=== PATIENT | male | born 1980 | race Caucasian/White ===

== ENCOUNTER 2019-05-09 20:27 | Emergency (ER) | payer SELFPAY ==
[2019-05-09] MEDS ORDERED: Ketorolac Tromethamine 30 MG/ML VIAL ONE (21:02)
[2019-05-09 21:16] LABS: Hemoglobin 14.3 g/dL (14.0-18.0); Mean Corpuscular HGB CONC 35.3 g/dL (32.0-36.0); Mean Corpuscular Hemoglobin 33.5 pg (27.0-31.0); Mean Corpuscular Volume 94.8 fL (78.0-98.0); Mean Platelet Volume 5.1 fL (7.4-10.4); Platelet Count 207 thou/uL (130-400); RBC Distribution Width 11.2 % (11.5-14.5); Red Blood Cell (RBC) Count 4.27 mill/uL (4.70-6.10); White Blood Cell (WBC) Count 8.2 thou/uL (4.8-10.8)
[2019-05-09 21:19] LABS: Bilirubin Negative (Negative); Blood, Urine Trace (Negative); Clarity Cloudy (Clear); Glucose, Urine (Dipstick) Negative (Negative); Leukocyte Negative (Negative); Nitrite Negative (Negative); Protein, Urine (Dipstick) 30 mg/dL (Neg-Trace); Urobilinogen 0.2 mg/dL (Less than 2)
[2019-05-09 21:20] LABS: ALT (SGPT) 21 U/L (8-55); AST (SGOT) 21 U/L (5-34); Albumin 4.2 g/dL (3.5-5.0); Alkaline Phosphatase 79 U/L (40-110); Anion Gap 17 mmol/L (10-20); BUN (Urea Nitrogen) 21 mg/dL (8.9-20.6); Bilirubin, Total 0.8 mg/dL (0.2-1.2); Calc. Creatinine Clearance 0 mL/min (70-130); Calcium 9.3 mg/dL (7.8-10.44); Carbon Dioxide 24 mmol/L (22-29); Chloride 98 mmol/L (98-107); Estimated GFR-MDRD 33; Globulin 3.4 g/dL (2.4-3.5); Glucose 114 mg/dL (70-105); Potassium 3.3 mmol/L (3.5-5.1); Protein, Total 7.6 g/dL (6.0-8.3); Sodium 136 mmol/L (136-145)
[2019-05-09] MEDS ORDERED: Cefepime 1 GM VIAL ONE (21:23)
[2019-05-09] MEDS ORDERED: metroNIDAZOLE 500 MG/100 ML BAG ONE (21:23)
[2019-05-09 21:27] LABS: Bacteria/HPF 1+ HPF (None Seen); RBC/HPF 0-3 HPF (0-3); Squamous Epithelial 0-3 HPF (0-3); White Blood Cell Cast 0-3 LPF (None Seen)
[2019-05-09 21:35] LABS: Band 4 % (5-11); Lymphocytes 5 % (21-51); MDiff Complete? YES; Monocytes 9 % (0-10); Neutrophil 82 % (42-75); Platelet Morphology Comment Appears Adequate; RBC Morphology Normal
--- NOTE | 2019-05-09 21:41 | CT ---
CT ABDOMEN AND PELVIS WITHOUT CONTRAST: 05/09/[address] of the abdomen and pelvis was done for evaluation of right flank pain. Axial and coronal sc ans were presented. No contrast was used. The appendix is distended and thick walled, measuring up to 1.3 cm in width. There is intense inflamm atory change in the periappendiceal region and extending beyond that. There appear to be one or two s mall pockets of air that are outside of the lumen of the appendix. The findings are consistent with a cute appendicitis with perforation. The lung bases are clear. The liver, spleen, pancreas, gallbladder, kidneys, and abdominal aorta show ed no acute findings within the limitations of a noncontrast scan. The right adrenal gland appears no rmal. There is some haziness around the left adrenal gland that could actually be a small adenoma, bu t it is of no concern at any rate. CT of the pelvis showed no findings aside from the appendiceal issues listed above. No free fluid wa s seen in the deep pelvis. IMPRESSION: Acute appendicitis with perforation. Large amounts of surrounding inflammatory reaction present, but no focal abscess was seen. Findings discussed with Dr. Loya at [id number] on 05/09/19. POS: HOME
== END 2019-05-09 22:15 | disposition short-term general hospital (02) ==
LOC: BURERS 20:27
DX: K35.80 Unspecified acute appendicitis (principal); F17.210 Nicotine dependence, cigarettes, uncomplicated
CPT/HCPCS: 74176; 80053; 81003; 81015; 85025; 96365; 96375; J0692; J1885

== ENCOUNTER 2020-04-25 07:59 | Emergency (ER) | payer SELFPAY ==
[2020-04-25] MEDS ORDERED: Milk Of Magnesia 30 ML UDCUP ONE (08:36)
[2020-04-25] MEDS ORDERED: Dicyclomine 20 MG TAB ONE (08:36)
[2020-04-25] MEDS ORDERED: Lidocaine Viscous Sol 2% 15 ml UD Cup ONE (08:36)
== END 2020-04-25 09:35 | disposition home or self-care (01) ==
LOC: BURERS 07:59
DX: K29.70 Gastritis, unspecified, without bleeding (principal); M19.90 Unspecified osteoarthritis, unspecified site; F17.210 Nicotine dependence, cigarettes, uncomplicated